=== PATIENT | male | born 1980 | race Caucasian/White ===

== ENCOUNTER 2017-03-05 02:55 | Observation (INO) | payer OTHER ==
[2017-03-05 03:30] VITALS: BP 139/80; PULSE 81; RESP 20; TEMP 98.2; O2SAT 97
[2017-03-05] MEDS ORDERED: SODIUM CHLORIDE 0.9% FLUSH 5 ML FLUSH IV FLUSH PRN (03:30)
[2017-03-05 03:45] VITALS: PULSE 83
[2017-03-05 06:31] LABS: APTT (PATIENT) 27.4 SEC (24.3-30.1); PROTHROMBIN TIME - PATIENT 11.1 SEC (9.8-11.6)
--- NOTE | 2017-03-05 06:44 | PD ---
HPI . 36-year-old male complaining of right facial paresthesias and right hand paresthesias 5 PM resolved on arrival to the emergency department. He denies any other focal symptoms or use of illicit drugs. Denies smoking or hypercholesterol. His primary care is Dr. Bryant he is to see in April Chief Complaint: paresthesia Time Seen by Provider: 03:04 Travel History International Travel<30 days: No Contact w/Intl Traveler<30days: No Traveled to known affect area: No History of Present Illness HPI gradual onset numbness rt face , rt hands 2 hours then resolve no other HPI PFSH Past Medical History Narrative Medical stable assymptomatic Medical History: Denies Significant Hx Cardiovascular Problems: No Cerebrovascular Accident: No Diabetes: No Diminished Hearing: No GERD: Yes Genitourinary: No Musculoskeletal: Yes Neurologic: Yes Psychiatric: No Respiratory: No Ulcer: No Family History Family History: Negative Social History Alcohol Use: No Tobacco Use: No Substance Use: No Allergies-Medications (Allergen,Severity, Reaction): Coded Allergies: Penicillin (Verified Allergy, Severe, Rash, 03/04/17) Thyrogen (Verified Allergy, Severe, Swelling, 03/04/17) Reported Meds & Prescriptions Reported Meds & Active Scripts Active No Active Prescriptions or Reported Medications Review of Systems Except as stated in HPI: all other systems reviewed are Neg HENT: Positive: Headaches, No: Lightheadedness, Sore Throat, Neck Stiffness, Neck Pain Cardiovascular: No: Chest Pain or Discomfort Respiratory: No: Cough, Shortness of Breath Gastrointestinal: No: Nausea, Vomiting Skin: No Rash, No Itching, No Dryness Neurologic: Positive: Dizziness, Headache, Paresthesia, No: Slurred Speech, Seizures Psychiatric: No: Anxiety, Depression, Disorder of Thought, Mood Disorder Physical Exam Narrative GENERAL: alert no distress SKIN: Focused skin assessment warm/dry. HEAD: Atraumatic. Normocephalic. EYES: Pupils equal and round. EOMI No scleral icterus. No injection or drainage. ENT: No nasal bleeding or discharge. Mucous membranes pink and moist. NECK: Trachea midline. No JVD. CARDIOVASCULAR: Regular rate and rhythm. No murmur appreciated. RESPIRATORY: No accessory muscle use. Clear to auscultation. Breath sounds equal bilaterally. GASTROINTESTINAL: Abdomen soft, non-tender, nondistended. Hepatic and splenic margins not palpable. MUSCULOSKELETAL: No obvious deformities. No clubbing. No cyanosis. No edema. NEUROLOGICAL: Awake and alert. No obvious cranial nerve deficits. Motor grossly within normal limits. Normal speech.cb intact,neg rhomberg or pronator drift PSYCHIATRIC: Appropriate mood and affect; insight and judgment normal. MDM Medical Decision Making Medical Screen Exam Complete: Yes Emergency Medical Condition: Yes Interpretation(s) ct head neg Differential Diagnosis paresthesia , TIA vs other Narrative Course symptoms lasted 2 hours then complete resolve Physician Communication Physician Communication discuss with Dr Boswell and want admit main but no beds so nursing confirm ok to [facility] . pt given full aspirin, and Dr Hernandez accept aware am consult with neuro , who rec MRI, MRA , MRI carotids, hyperviscosity tests.Pt is assympto at transfer Diagnosis Primary Impression: Paresthesia Admitting Information Admitting Physician Requests: Admit Scripts No Active Prescriptions or Reported Meds Condition: Alcon Vences DO Mar 05, 2017 06:44
[2017-03-05 07:00] VITALS: PULSE 78
[2017-03-05 08:00] VITALS: BP 133/80; PULSE 90; RESP 18; TEMP 97.7; O2SAT 98
[2017-03-05] MEDS ORDERED: SODIUM CHLORIDE 0.9% FLUSH 5 ML FLUSH IV FLUSH SCH (09:00)
--- NOTE | 2017-03-05 09:02 | HHI.HP ---
[facility] Unknown Admission Diagnosis possible TIA Diagnoses: (1) TIA (transient ischemic attack) Diagnosis: Principal Chief Complaint: numbness of the right hand and face Travel History International Travel<30 Days: No Contact w/Intl Traveler <30 Da: No Traveled to Known Affected Are: No History of Present Illness patient is a 36 y/o male with no significant past medical history who presented to ER with numbness of the right hand and face. he says that he started to have this numbness while he was going home from work. he says that he started to have numbness of the hand first and later on some numbness over the right face. he denies any slurred speech, focal weakness, vision changes or headache at the time. he says that symptoms lasted for twenty minutes. he recalls another episode of right?-sided numbness about a year ago but he never had a work-up at the time. Review of Systems Neurologic: COMPLAINS OF: Paresthesias Past Family Social History Past Medical History not significant. Past Surgical History none Reported Medications none. Allergies: Coded Allergies: Penicillin (Verified Allergy, Severe, Rash, 03/04/17) Thyrogen (Verified Allergy, Severe, Swelling, 03/04/17) Active Ordered Medications Current Medications IV Flush (NS Flush) 2 ml BID IV FLUSH ; Start 03/05/17 at 09:00 IV Flush (NS Flush) 2 ml UNSCH PRN IV FLUSH FLUSH AFTER USING IV ACCESS; Start 03/05/17 at 03:30 Family History diabetes in both parents. Social History no smoking or drinking. Physical Exam Vital Signs Vital Signs Date Time Temp Pulse Resp B/P Pulse Ox O2 Delivery O2 Flow Rate FiO2 03/05/17 03:45 83 03/05/17 03:30 98.2 81 20 139/80 97 Physical Exam GENERAL: This is a well-nourished, well-developed patient, in no apparent distress. SKIN: No rashes, ecchymoses or lesions. Cool and dry. HEAD: Atraumatic. Normocephalic. No temporal or scalp tenderness. EYES: Pupils equal round and reactive. Extraocular motions intact. No scleral icterus. No injection or drainage. ENT: Nose without bleeding, purulent drainage or septal hematoma. Throat without erythema, tonsillar hypertrophy or exudate. Uvula midline. Airway patent. NECK: Trachea midline. No JVD or lymphadenopathy. Supple, nontender, no meningeal signs. CARDIOVASCULAR: Regular rate and rhythm without murmurs, gallops, or rubs. RESPIRATORY: Clear to auscultation. Breath sounds equal bilaterally. No wheezes , rales, or rhonchi. GASTROINTESTINAL: Abdomen soft, non-tender, nondistended. No hepato-splenomegaly , or palpable masses. No guarding. MUSCULOSKELETAL: Extremities without clubbing, cyanosis, or edema. No joint tenderness, effusion, or edema noted. No calf tenderness. Negative Homans sign bilaterally. NEUROLOGICAL: Awake and alert. Cranial nerves II through XII intact. Motor and sensory grossly within normal limits. Five out of 5 muscle strength in all muscle groups. Normal speech. Laboratory Laboratory Tests Test 03/05/17 06:02 Prothrombin Time 11.1 Prothromb Time International 1.0 Ratio Activated Partial 27.[address] head and CXR with no acute abnormality. Assessment and Plan Assessment and Plan A/P - possible TIA start aspirin MRI/MRA brain / US carotid and neurology evaluation pending. Discussed Condition With the patient. Problem Qualifiers (1) TIA (transient ischemic attack): Qualified Code: G45.9 - Transient cerebral ischemia, unspecified type Meño Payne MD Mar 05, 2017 09:01
[2017-03-05] MEDS ORDERED: ASPIRIN EC 81 MG TABEC PO SCH (10:00)
--- NOTE | 2017-03-05 10:05 | RADHPO ---
EXAM DATE/TIME: 03/05/2017 09:26 [facility] COMPARISON: No previous studies available for comparison. INDICATIONS : Cerebrovascular accident. MEDICAL HISTORY : Gastroesophageal reflux disease. SURGICAL HISTORY : Endoscopy. ENCOUNTER: Initial ACUITY: 2 days PAIN SCORE: 0/10 LOCATION: Bilateral neck PEAK SYSTOLIC VELOCITIES (cm/sec): ICA/CCA RATIO: Right: 0.9 Left: 0.6 ICA: Right: 110 Left: 87 CCA: Right: 123 Left: 136 ECA: Right: 118 Left: 140 VERTEBRAL: Right: 38 antegrade Left: 49 antegrade Elevated flow velocities and ICA/CCA ratios have been found to correlate with increased degrees of vessel stenosis, calculated as percentage of diameter relative to a normal segment of distal ICA/CCA FINDINGS: RIGHT CAROTID: There is no evidence for a hemodynamically significant carotid stenosis. Minimal int imal hyperplasia is present with scattered calcific plaque. LEFT CAROTID: There is no evidence for a hemodynamically significant carotid stenosis. Minimal inti mal hyperplasia is present with scattered calcific plaque. VERTEBRAL ARTERIES: Flow is antegrade in both vertebral arteries. MISCELLANEOUS: There are no ancillary masses or adenopathy. CONCLUSION: Negative examination for a hemodynamically significant carotid stenosis. Jericho Baxter MD FACR Board Certified Radiologist. This report was verified electronically.
[2017-03-05 12:00] VITALS: BP 140/88; PULSE 78; RESP 18; TEMP 98.5; O2SAT 96
--- NOTE | 2017-03-05 12:00 | RADHPO ---
EXAM DATE/TIME: 03/05/2017 11:03 [facility] COMPARISON: No previous studies available for comparison. INDICATIONS : Right sided weakness. Resolved. MEDICAL HISTORY : None. SURGICAL HISTORY : None. ENCOUNTER: Initial ACUITY: 1 day PAIN SCORE: 0/10 LOCATION: cranial Please note a normal MRA of the brain does not entirely exclude the possibility of a small aneurysm, nor the possibility of distal intracranial vessel disease. TECHNIQUE: 3D time of flight MRA was performed. Source images, multiplanar STS MIP, and 3D volume MIP reconstru ctions were reviewed. FINDINGS: There is excellent visualization of the major intracranial arteries out to the second-order branch ve ssels. There is no evidence for aneurysm, vessel truncation or stenosis, and no evidence for vascula r malformation. CONCLUSION: 1. Unremarkable MRA examination of the brain. Specifically, no evidence for aneurysm, significant bertin nosis or vascular malformation. Chetan Alexandre MD on March 05, 2017 at 11:51 Board Certified Radiologist. This report was verified electronically.
--- NOTE | 2017-03-05 12:15 | RADHPO ---
EXAM DATE/TIME: 03/05/2017 11:03 [facility] COMPARISON: CT BRAIN W/O CONTRAST, March 04, 2017, 20:11. INDICATIONS : Right sided weakness. Resolved. MEDICAL HISTORY : None. SURGICAL HISTORY : None. ENCOUNTER: Initial ACUITY: 1 day PAIN SCORE: 0/10 LOCATION: cranial TECHNIQUE: Multiplanar, multisequence MRI of the brain was performed without contrast. FINDINGS: CEREBRUM: The ventricles are normal for age. No evidence of midline shift, mass lesion, hemorrhage or acute in farction. No extraaxial fluid collections are seen. The pituitary gland and suprasellar cistern are normal in configuration. WHITE MATTER: Single area of increased T2 flair signal intensity in the right subcortical white matter. POSTERIOR FOSSA: The cerebellum and brainstem are intact. The 4th ventricle is midline. The cerebellopontine angle is unremarkable. The cerebellar tonsils are normal in position. DIFFUSION IMAGING: No focal areas of restricted diffusion are seen. No evidence of acute infarction. Interestingly, the re is a focal area of increased signal on the ADC map in the region of the right temporal lobe. No co rresponding abnormality on the diffusion sequence. This is likely artifactual. EXTRACRANIAL: The visualized portions of the orbits and paranasal sinuses are unremarkable. CONCLUSION: 1. Isolated white matter foci in the right parietal lobe. This is nonspecific and likely chronic. 2. Otherwise negative. Omar Woodward MD on March 05, 2017 at 12:07 Board Certified Radiologist. This report was verified electronically.
--- NOTE | 2017-03-05 14:17 | OTSOAPIP ---
TIME SESSION COMPLETED: TREATMENT TIME: 0 MINS. ELECTRONIC MEDICAL RECORD REVIEWED. PATIENT IS A 36-YEAR-OLD MALE COMPLAINING OF RIGHT FACIAL PARESTHESIAS AND RIGHT HAND PARESTHESIAS PER ELECTRONIC MEDICAL RECORD ALL SYMPTOMS RESOLVED ON ARRIVAL TO THE EMERGENCY DEPARTMENT. RECEIVED ORDERS FROM DR MEHRDAD MCKENZIE TO SCREEN INITIALLY, EVALUATE AND TREAT IF APPROPRIATED. INTERDISCIPLINARY COMMUNICATION: CONSULTED WITH [facility] VIA PHONE WHOM REPORT PATIENT REPORTS ALL SYMPTOMS HAS SUBSIDED. PER PHYSICAL THERAPY PATIENT IS INDEPENDENT WITH FUNCTIONAL MOBILITY WITH NO LOSS OF BALANCE WHEN CHALLENGED. BILATERAL UPPER EXTREMITIES ARE WITHIN FUNCTIONAL LIMITS FOR ACTIVE RANGE OF MOTION, STRENGTH, COORDINATION AND SENSORY. PATIENT IS INDEPENDENT WITH ACTIVITIES OF DAILY LIVING AND HAS BEEN EDUCATED ON SIGNS & SYMPTOMS THAT REQUIRE IMMEDIATE MEDICAL ATTENTION AND WAS INSTRUCTED TO SEEK MEDICAL HELP IF ANY NOTED. PATIENT WILL NOT REQUIRE OCCUPATIONAL THERAPY SERVICES HOWEVER IF DEFICITS RESURFACE PLEASE DON'T HESITATE TO RE-ORDER PLAN: OCCUPATIONAL THERAPY SIGNING OFF Therapist: RIZWANA ANDRADE/[employer] on file
[2017-03-05] MEDS ORDERED: ASPI-99 PO (14:33)
[2017-03-05 16:00] VITALS: BP 130/86; PULSE 83; RESP 18; TEMP 97.9; O2SAT 97
[2017-03-05 16:23] LABS: HEMOGLOBIN A1a 0.8 %; HEMOGLOBIN F 0.6 %; HEMOGLOBIN LA1C 1.7 %; HEMOGLOBIN P3 3.1 %
--- NOTE | 2017-03-05 17:21 | EC ---
Study Study Date:03/05/2017 STUDY CONCLUSIONS SUMMARY - Left ventricle: The cavity size was normal. Wall thickness was normal. Systolic function was normal. The estimated ejection fraction was in the range of 55% to 60%. Wall motion was normal; there were no regional wall motion abnormalities. - Right ventricle: The cavity size was mildly dilated. Systolic function was normal. If LV function is below 40, please consider prescribing an ACEI or ARB or document rationale for non-use. PROCEDURE DATA STUDY STATUS: Elective. Procedure: Transthoracic echocardiography. Image quality was good. Scanning was performed from the parasternal, apical, and subcostal acoustic windows. Study completion: The patient tolerated the procedure well. Transthoracic echocardiography. M-mode, complete 2D, complete spectral Doppler, and color Doppler. Height: Height: 72in. Weight: Weight: 217.5lb. Body mass index: BMI: 29.6kg/m^2. Body surface area: BSA: 2.21m^2. Patient status: Inpatient. CARDIAC ANATOMY LEFT VENTRICLE: The cavity size was normal. Wall thickness was normal. Systolic function was normal. The estimated ejection fraction was in the range of 55% to 60%. Wall motion was normal; there were no regional wall motion abnormalities. AORTIC VALVE: The valve appears to be grossly normal. Probably trileaflet. Doppler: There was no stenosis. No significant regurgitation. Valve area: 3.77cm^2(VTI). Indexed valve area: 1.71cm^2/m^2 (VTI). Valve area: 3.34cm^2 (Vmax). Indexed valve area: 1.51cm^2/m^2 (Vmax). Mean gradient: 3mm Hg (S). MITRAL VALVE: Structurally normal valve. Doppler: There was no evidence for stenosis. Trace regurgitation. Peak gradient: 3mm Hg (D). LEFT ATRIUM: The atrium was normal in size. RIGHT VENTRICLE: The cavity size was mildly dilated. Systolic function was normal. PULMONIC VALVE: Not well visualized. Doppler: There was no evidence for stenosis. No significant regurgitation. TRICUSPID VALVE: The valve appears to be grossly normal. Doppler: There was no evidence for stenosis. Trace regurgitation. PERICARDIUM: There was no pericardial effusion. Patient weight: 217.5lb _Ejection fraction:_ 65-75% _Fractional shortening:_ 32% up to 5Kg 5-11.5Kg 11.6-22.9Kg 23-45Kg 45-57Kg Aortic Root 7-13 <17 13-22 17-27 17-27 LA diam 6-13 <23 24-38 33-47 37-40 RVID 10-17 7-15 7-15 7-18 8-17 LVIDd 12-22 <32 24-38 33-47 37-40 LVPW 2-4 3-6 5-7 6-8 7-8 IVS 2-4 3-6 5-7 6-8 7-8 BASIC MEASUREMENTS ADULT NORMAL Left ventricle LV internal dimension, ED, chordal 43.6 mm 43-52 level, PLAX LV internal dimension, ES, chordal 29.9 mm 23-38 level, PLAX Fractional shortening, chordal level, 31 % >29 PLAX LV posterior wall thickness, ED 8.21 mm IVS/LVPW ratio, ED 1 <1.3 Ventricular septum Septal thickness, ED 8.22 mm Aortic valve Leaflet separation 22 mm 15-26 Aorta Root diameter, ED 32 mm Left atrium Anterior-posterior dimension 24 mm Anterior-posterior dimension index 1.09 cm/m^2 <2.2 BASIC MEASUREMENTS ADULT NORMAL Aortic valve Leaflet separation 22 mm 15-26 DOPPLER MEASUREMENTS ADULT NORMAL Main pulmonary artery Pressure, S 23 mm Hg =30 Aortic valve Peak velocity, S 112 cm/s Mean velocity, S 74.2 cm/s VTI, S 17.7 cm Mean gradient, S 3 mm Hg Valve area, VTI 3.77 cm^2 Valve area index, VTI 1.71 cm^2/m^2 Valve area, Vmax 3.34 cm^2 Valve area index, Vmax 1.51 cm^2/m^2 Mitral valve Peak E-wave velocity 82.9 cm/s Peak A-wave velocity 58.7 cm/s Deceleration time 190 ms 150-230 Peak gradient, D 3 mm Hg Peak E/A ratio 1.4 Tricuspid valve Regurgitant peak velocity 193 cm/s Peak RV-RA gradient, S 15 mm Hg Maximal regurgitant velocity 193 cm/s Systemic veins Estimated CVP 10 mm Hg Right ventricle RV pressure, S 25 mm Hg <30 Pulmonic valve Peak velocity, S 69.9 cm/s LEGEND: Mean values are shown as u=mean value. Asterisk (*) anderson values outside specified normal range. Prepared and signed by Beto Jain [id number]
--- NOTE | 2017-03-06 14:26 | EKG ---
Date Performed: 03/05/2017 Time Performed: 14:38:16 PTAGE: 36 years EKG: Sinus rhythm . Normal ECG NO PREVIOUS TRACING DOCTOR: Lc Herbert Interpretating Date/Time 03/06/2017 14:25:18
== END 2017-03-05 18:54 | disposition home or self-care (01) ==
LOC: PHEDDLT 02:55 → PH3A 03:05
PROVIDERS: ADMIT Internal Medicine; ATTEND Internal Medicine
DX: G45.9 Transient cerebral ischemic attack, unspecified (principal); K21.9 Gastro-esophageal reflux disease without esophagitis
CPT/HCPCS: 70450; 70544; 70551; 71010; 80053; 82948; 83036; 83735; 84484; 85025; 85610; 85730; 93005; 93306; 93880; 97162; 99285; G0378; G8987; G8988